=== PATIENT | male | born 1985 | race Caucasian/White ===

== ENCOUNTER 2018-04-25 08:27 | Emergency (ER) | payer OTHER ==
[~2018-04-25] VITALS: Ht 185.4 cm; Wt 83.9 kg
[~2018-04-25 08:27] MED LIST: GENTAMICIN SU3 MG/ML OPHTHALMIC; HYDROCODONE-AP1 EAC6 PO
[2018-04-25 09:14] VITALS: BP 115/74
== END 2018-04-25 09:06 | disposition home or self-care (01) ==
LOC: M.ERS 08:27
DX: S71.112A Laceration without foreign body, left thigh, initial encounter (principal); Z88.5 Allergy status to narcotic agent; W26.8XXA Contact with other sharp object(s), not elsewhere classified, initial encounter; Y93.89 Activity, other specified; Y92.89 Other specified places as the place of occurrence of the external cause; Y99.8 Other external cause status

== ENCOUNTER 2018-08-26 07:48 | Emergency (ER) | payer BC ==
[~2018-08-26] VITALS: Ht 185.4 cm; Wt 88.5 kg
[2018-08-26 09:57] VITALS: BP 114/76
== END 2018-08-26 09:58 | disposition home or self-care (01) ==
LOC: M.ERS 07:48
DX: S05.01XA Injury of conjunctiva and corneal abrasion without foreign body, right eye, initial encounter (principal); Z88.5 Allergy status to narcotic agent; Z90.89 Acquired absence of other organs; X58.XXXA Exposure to other specified factors, initial encounter; Y92.89 Other specified places as the place of occurrence of the external cause; Y93.89 Activity, other specified; Y99.8 Other external cause status

== ENCOUNTER 2019-02-01 07:10 | Emergency (ER) | payer BC ==
[~2019-02-01] VITALS: Ht 185.4 cm; Wt 83.9 kg
[2019-02-01 09:12] VITALS: BP 132/84
== END 2019-02-01 09:15 | disposition home or self-care (01) ==
LOC: M.ERS 07:10
DX: S93.491A Sprain of other ligament of right ankle, initial encounter (principal); F17.210 Nicotine dependence, cigarettes, uncomplicated; Z88.5 Allergy status to narcotic agent; Z90.89 Acquired absence of other organs; V89.2XXA Person injured in unspecified motor-vehicle accident, traffic, initial encounter; Y92.89 Other specified places as the place of occurrence of the external cause; Y93.89 Activity, other specified; Y99.8 Other external cause status

== ENCOUNTER 2019-06-04 09:08 | Emergency (ER) | payer OTHER ==
[~2019-06-04] VITALS: Ht 185.4 cm; Wt 81.7 kg
[2019-06-04] MEDS ORDERED: LIDODERM1 EACH TRANSDERM (09:37)
[2019-06-04] MEDS ORDERED: FLEXERIL PO (09:37)
[2019-06-04] MEDS ORDERED: NORCO 5-325 TA1 EAC1 PO (09:37)
[2019-06-04 09:50] VITALS: BP 118/73
== END 2019-06-04 09:50 | disposition home or self-care (01) ==
LOC: M.ERS 09:08
DX: M62.830 Muscle spasm of back (principal); F17.210 Nicotine dependence, cigarettes, uncomplicated; Z90.89 Acquired absence of other organs; Z88.5 Allergy status to narcotic agent

== ENCOUNTER 2019-06-07 12:14 | Emergency (ER) | payer OTHER ==
[~2019-06-07] VITALS: Ht 185.4 cm; Wt 81.7 kg
[~2019-06-07 12:14] MED LIST changes: +FLEXERIL PO; +LIDODERM1 EACH TRANSDERM; +NORCO 5-325 TA1 EAC1 PO
[2019-06-07] MEDS ORDERED: MEDROLDOSEPACK PO (13:12)
[2019-06-07 13:30] VITALS: BP 131/71
== END 2019-06-07 13:31 | disposition home or self-care (01) ==
LOC: M.ERS 12:14
DX: M54.12 Radiculopathy, cervical region (principal); F17.210 Nicotine dependence, cigarettes, uncomplicated; Z88.5 Allergy status to narcotic agent; Z98.890 Other specified postprocedural states

== ENCOUNTER 2021-03-16 18:56 | Emergency (ER) | payer OTHER ==
[~2021-03-16] VITALS: Ht 185.4 cm; Wt 86.2 kg
[~2021-03-16 18:56] MED LIST changes: +MEDROLDOSEPACK PO
[2021-03-16 20:08] LABS: URINE BILIRUBIN NEGATIVE (Negative); URINE BLOOD NEGATIVE (Negative); URINE CLARITY CLEAR; URINE COLOR YELLOW; URINE GLUCOSE-RANDOM NEGATIVE (Negative); URINE KETONES NEGATIVE (Negative); URINE LEUKOCYTES-REFLEX NEGATIVE (Negative); URINE NITRITE-REFLEX NEGATIVE (Negative); URINE PROTEIN NEGATIVE (Negative); URINE SPECIFIC GRAVITY 1.015 (1.005-1.030); URINE UROBILINOGEN 0.2 E.U./dl (0.2-1.0)
[2021-03-16] MEDS ORDERED: CIPROFLOXIN HC2.5 M1 OTIC (20:52)
[2021-03-16 20:58] VITALS: BP 132/66
[2021-03-22] MEDS ORDERED: ADVIL200 M3 PO (11:58)
== END 2021-03-16 20:58 | disposition home or self-care (01) ==
LOC: M.ERS 18:56
PROVIDERS: Physician Assistant
DX: S05.01XA Injury of conjunctiva and corneal abrasion without foreign body, right eye, initial encounter (principal); N50.89 Other specified disorders of the male genital organs; F17.210 Nicotine dependence, cigarettes, uncomplicated; Z88.5 Allergy status to narcotic agent; Z90.89 Acquired absence of other organs; X58.XXXA Exposure to other specified factors, initial encounter; Y93.89 Activity, other specified; Y92.89 Other specified places as the place of occurrence of the external cause; Y99.8 Other external cause status

== ENCOUNTER → 2021-03-23 | Outpatient (CLI) | payer OTHER ==
[~2021-03-23] MED LIST changes: +ADVIL200 M3 PO; +CIPROFLOXIN HC2.5 M1 OTIC
[2021-03-23 09:14] LABS: HEMATOCRIT 41.4 % (42.0-52.0); HEMOGLOBIN 14.3 gm/dL (14.0-18.0); MCH 31.6 pg (26.0-34.0); MCHC 34.6 g/dL (28.0-37.0); MCV 91.2 fL (80.0-100.0); MPV 7.2 fl. (7.2-11.1); RBC 4.54 mil/uL (4.50-6.00); RDW-CV 12.6 % (10.5-14.5); WBC 6.4 thou/uL (4.0-11.0)
[2021-03-23 09:34] LABS: ALBUMIN 4.5 g/dL (3.4-5.0); CALCIUM 9.4 mg/dL (8.5-10.1); CREATININE 0.9 mg/dL (0.6-1.3); POTASSIUM 4.2 mmol/L (3.5-5.1); TOTAL BILIRUBIN 0.4 mg/dL (<0.1-1.0); TOTAL PROTEIN 7.9 g/dL (6.4-8.2)
== END ==
LOC: M.CT 08:09
PROVIDERS: ATTEND Urology
DX: D40.11 Neoplasm of uncertain behavior of right testis (principal)